=== PATIENT | male | born 1980 | race Two or more races ===

== ENCOUNTER 2022-09-27 22:15 | Emergency (ER) | payer OTHER ==
[~2022-09-27] VITALS: Ht 182.9 cm; Wt 88.5 kg
== END 2022-09-28 14:45 | disposition home or self-care (01) ==
LOC: ER 22:15
PROVIDERS: General Practice
DX: R60.9 Edema, unspecified (principal); T20.20XA Burn of second degree of head, face, and neck, unspecified site, initial encounter; T22.219A Burn of second degree of unspecified forearm, initial encounter; T22.20XA Burn of second degree of shoulder and upper limb, except wrist and hand, unspecified site, initial encounter; T79.8XXA Other early complications of trauma, initial encounter; X08.8XXA Exposure to other specified smoke, fire and flames, initial encounter; Y93.G3 Activity, cooking and baking; Y92.89 Other specified places as the place of occurrence of the external cause; Y99.8 Other external cause status; Z20.822 Contact with and (suspected) exposure to COVID-19